=== PATIENT | female | born 2000 | race Caucasian/White ===

== ENCOUNTER 2025-06-21 11:40 | Emergency (ER) | payer MEDICAID ==
[~2025-06-21] VITALS: Ht 170.2 cm; Wt 97.0 kg
[2025-06-21] MEDS ORDERED: PANTOPRAZOLE SO20 MG PO (11:55)
[2025-06-21] MEDS ORDERED: ACETAMINOPHEN 500 MG TAB PO ONE (12:00)
[2025-06-21] MEDS ORDERED: KETOROLAC TROMETHAMINE 15 MG/ML VIAL IV ONE (12:00)
[2025-06-21] MEDS ORDERED: SODIUM CHLORIDE 0.9% 1,000 ML IV PRN (12:00)
[2025-06-21] MEDS ORDERED: ALLERGY RELIEF60 MG (12:02)
[2025-06-21 12:13] LABS: BASOPHILS 0.2 % (0.1-1.2); EOSINOPHILS 2.1 % (0.7-5.8); LYMPHOCYTES 20.0 % (19.3-51.7); MCH 29.8 PG (25.6-32.2); MCHC 34.5 g/dL (32.2-35.5); MCV 86.2 fL (79.4-94.8); MONOCYTES 8.9 % (4.7-12.5); NEUTROPHILS 68.6 % (34.0-71.1); RBC 4.50 M/uL (3.93-5.22)
[2025-06-21 12:28] LABS: CORONAVIRUS COVID-19 AG NEGATIVE (NEGATIVE)
[2025-06-21 12:29] LABS: ALT (SGPT) 29.0 U/L (14-59); AST (SGOT) 23.0 U/L (15-37); GLOMERULAR FILTRATION RATE,EST 132.0 mL/min (>60); PROTEIN, TOTAL 7.4 g/dL (6.4-8.2); UREA NITROGEN 3.0 mg/dL (7-18)
[2025-06-21 12:34] LABS: LACTIC ACID, BLOOD 0.9 mmol/L (0.4-2.0)
[2025-06-21 13:23] LABS: BLOOD/HGB, URINE TRACE-L (Negative); KETONE, URINE SMALL (Negative); LEUK ESTERASE, URINE NEGATIVE (negative); NITRITE, URINE NEGATIVE (negative)
[2025-06-21 13:29] LABS: BACTERIA, URINE NONE SEEN /hpf (negative); CASTS, URINE NONE SEEN \\lpf; CRYSTALS, URINE NONE SEEN (0-1+); EPITHELIAL CELLS, URINE SQUAMOUS 2+ /lpf (0-1+); REFLEX CULTURE, URINE No (No)
[2025-06-21] MEDS ORDERED: TETRACAINE HCL AU (14:09)
[2025-06-21] MEDS ORDERED: ZITHROMAX250 MG PO (14:09)
[2025-06-21 14:14] VITALS: BP 108/66
== END 2025-06-21 14:22 | disposition home or self-care (01) ==
LOC: ED 11:40
PROVIDERS: Emergency Medicine
DX: H66.93 Otitis media, unspecified, bilateral (principal); J02.9 Acute pharyngitis, unspecified; H92.03 Otalgia, bilateral; Z79.899 Other long term (current) drug therapy; Z88.0 Allergy status to penicillin
CPT/HCPCS: 36415; 71045; 80053; 81001; 83605; 85025; 87040; 87502; 87651; 96374; 99283-25; A9270; J1885; U0002